=== PATIENT | female | born 1980 | race Caucasian/White ===

== ENCOUNTER 2016-10-05 04:50 | Emergency (ER) | payer OTHER ==
[2016-10-05 05:21] VITALS: BP 118/56; PULSE 100; RESP 18; TEMP 97.7
[2016-10-05] MEDS ORDERED: AMOXIC-POT CLAV 875MG STARTER 2 EACH TABLET PO STA (05:36)
[2016-10-05] MEDS ORDERED: ACET/COD 300 MG/30 MG STARTER PACK 6 TAB BTL PO STA (05:37)
[2016-10-05] MEDS ORDERED: IBUPROFEN 600 MG STARTER PACK 4 TAB BTL PO STA (05:37)
--- NOTE | 2016-10-05 05:42 | ED ---
ENT HPI - General Chief complaint: ENT Stated complaint: Earache Time Seen by Provider: 10/05/16 05:18 Source: patient, family, RN notes reviewed Mode of arrival: ambulatory Limitations: no limitations - History of Present Illness Initial comments: This patient is a 36-year-old woman who complains of having "earache" to the right ear. This is been started over the course the past night. The patient states that the previous week she was having some cough and congestion type symptoms and she often will get uric associated with that. She states that in fact she was surprised she had not had an earache associated with this upper respiratory infection, then she began having symptoms over the course of tonight. Patient denies change in hearing. She denies any discharge from the ear. She is not having fever or chills. No headache. MD complaint: ear pain -: hour(s) Location: R ear Severity: moderate Quality: aching Consistency: constant Improves with: none Worsens with: none Context-Epistaxis: history of similar Associated Symptoms: cough, rhinorrhea - Related Data Home Medications Medication Instructions Recorded Confirmed Lopinavir/Ritonavir [Kaletra 2 tab PO BID 07/30/15 10/05/16 200-50 mg Tablet] lamiVUDine/ZIDOVUDINE [Combivir 1 each PO BID 07/30/15 10/05/16 150Mg/300Mg] Previous Rx's Medication Instructions Recorded Ibuprofen [Motrin] 800 mg PO Q8HR PRN #21 tab 07/30/15 Albuterol Inhaler [Ventolin Hfa 1 - 2 puff INHALATION Q6HR #1 02/24/16 Inhaler] inhaler Cetirizine HCl/Pseudoephedrine 1 each PO BID #30 tab.er.12h 02/24/16 [Zyrtec-D Tablet] Ibuprofen [Motrin] 800 mg PO Q8HR #60 tab 02/24/16 Amoxicillin/Potassium Clav 1 tab PO Q12HR #14 tab 02/25/16 [Augmentin 875-125 Tablet] Acetaminophen-Codeine 300-30mg 1 tab PO Q4H PRN #16 tablet 10/05/16 [Tylenol w/codeine #3] Amoxicillin/Potassium Clav 1 tab PO Q12HR #14 tab 10/05/16 [Augmentin 875-125 Tablet] Ibuprofen [Motrin] 800 mg PO Q8HR PRN #20 tab 10/05/16 Allergies Allergy/AdvReac Type Severity Reaction Status Date / Time No Known Allergies Allergy Verified 10/05/16 05:20 Review of Systems ROS Statement: Those systems with pertinent positive or pertinent negative responses have been documented in the HPI. ROS Other: All systems not noted in ROS Statement are negative. Constitutional: Denies: fever, chills Eyes: Denies: eye pain ENT: Reports: ear pain, congestion. Denies: throat pain, hearing loss Respiratory: Reports: cough. Denies: dyspnea Neurological: Denies: headache, weakness, numbness Past Medical History Additional Past Medical History / Comment(s): HIV History of Any Multi-Drug Resistant Organisms: None Reported Past Surgical History: Section Past Psychological History: No Psychological Hx Reported Smoking Status: Current every day smoker Past Alcohol Use History: None Reported Past Drug Use History: None Reported General Exam Limitations: no limitations General appearance: alert, in no apparent distress Head exam: Present: atraumatic, normocephalic Eye exam: Present: normal appearance. Absent: scleral icterus, conjunctival injection ENT exam: Present: other (Cobblestoning of the oropharynx. The right tympanic membrane has a clear effusion. There is some injection. The external auditory canal is normal. There is no evident perforation. No tragus tenderness.). Absent: TM's normal bilaterally Neck exam: Present: normal inspection, full ROM. Absent: lymphadenopathy Skin exam: Present: warm, dry, intact, normal color. Absent: rash Course Vital Signs 10/05/16 05:17 Temperature 97.7 F Pulse Rate 100 Respiratory 18 Rate Blood Pressure 118/56 O2 Sat by Pulse 97 Oximetry Disposition Clinical Impression: Otitis media Disposition: HOME SELF-CARE Condition: Fair Instructions: Otitis Media (ED) Prescriptions: Acetaminophen-Codeine 300-30mg [Tylenol w/codeine #3] 1 tab PO Q4H PRN #16 tablet PRN Reason: Pain Amoxicillin/Potassium Clav [Augmentin 875-125 Tablet] 1 tab PO Q12HR #14 tab Ibuprofen [Motrin] 800 mg PO Q8HR PRN #20 tab PRN Reason: Pain Referrals: Carmen Alicea MD [Primary Care Provider] - 1-2 days
== END 2016-10-05 05:54 | disposition home or self-care (01) ==
LOC: EC 04:50
DX: H66.91 Otitis media, unspecified, right ear (principal); B20 Human immunodeficiency virus [HIV] disease; F17.200 Nicotine dependence, unspecified, uncomplicated; Z79.899 Other long term (current) drug therapy; Z79.1 Long term (current) use of non-steroidal anti-inflammatories (NSAID)
CPT/HCPCS: 99283

== ENCOUNTER → 2017-06-15 | Outpatient (CLI) | payer OTHER ==
[2017-06-15 13:27] LABS: Basophils % (A) 1 %; CH 39.2; CHCM 32.7; Eosinophils # (A) 0.1 k/uL (0-0.7); Eosinophils % (A) 2 %; HCT 42.7 % (34.0-46.0); HDW 2.42; HGB 14.2 gm/dL (11.4-16.0); Luc # (Auto) 0.12; Luc % (Auto) 2; Lymphocytes # (A) 2.8 k/uL (1.0-4.8); Lymphocytes % (A) 39 %; MCHC 33.2 g/dL (31.0-37.0); MCV 120.5 fL (80.0-100.0); Macrocytosis Marked; Mean Platelet Volume 7.8; Monocytes # (A) 0.3 k/uL (0-1.0); Monocytes % (A) 5 %; Neutrophils # (A) 3.7 k/uL (1.3-7.7); Neutrophils % (A) 52 %; RBC 3.54 m/uL (3.80-5.40); RDW 12.8 % (11.5-15.5); WBC 7.1 k/uL (3.8-10.6); WBC (Perox) 7.35
[2017-06-15 13:49] LABS: Manual Review Performed
[2017-06-15 15:00] LABS: Anion Gap 9 mmol/L; Blood Urea Nitrogen 10 mg/dL (7-17); Calcium 9.4 mg/dL (8.4-10.2); Carbon Dioxide 22 mmol/L (22-30); Chloride 107 mmol/L (98-107); Glucose 87 mg/dL (74-99); Non-African American GFR(MDRD) >60 (>60 ml/min/1.73 sqM); Potassium 4.4 mmol/L (3.5-5.1); Sodium 138 mmol/L (137-145)
[2017-06-16 13:55] LABS: LOG HIV Copies/mL <1.60 (<1.60)
== END | disposition home or self-care (01) ==
LOC: LABWHC1 12:45
PROVIDERS: ATTEND Internal Medicine Infectious Disease
DX: B20 Human immunodeficiency virus [HIV] disease (principal)
CPT/HCPCS: 36415; 80048; 85025; 86360; 87536

== ENCOUNTER → 2017-12-21 | Outpatient (CLI) | payer OTHER ==
[2017-12-21 15:19] LABS: Anion Gap 9 mmol/L; Blood Urea Nitrogen 10 mg/dL (7-17); Calcium 9.2 mg/dL (8.4-10.2); Carbon Dioxide 24 mmol/L (22-30); Chloride 109 mmol/L (98-107); Glucose 87 mg/dL (74-99); Potassium 3.7 mmol/L (3.5-5.1); Sodium 142 mmol/L (137-145)
[2017-12-21 15:47] LABS: Basophils % (A) 0 %; Eosinophils # (A) 0.2 k/uL (0-0.7); Eosinophils % (A) 3 %; HCT 37.2 % (34.0-46.0); HGB 13.1 gm/dL (11.4-16.0); Lymphocytes # (A) 1.7 k/uL (1.0-4.8); Lymphocytes % (A) 32 %; MCH 38.2 pg (25.0-35.0); MCHC 35.3 g/dL (31.0-37.0); Macrocytosis Moderate; Mean Platelet Volume 8.9; Monocytes # (A) 0.4 k/uL (0-1.0); Monocytes % (A) 7 %; Neutrophils % (A) 55 %; Platelet Count 295 k/uL (150-450); RBC 3.44 m/uL (3.80-5.40); RDW 13.1 % (11.5-15.5); WBC 5.4 k/uL (3.8-10.6)
[2017-12-21 16:51] LABS: Large Platelets Present; Polychromasia Present
[2017-12-22 10:17] LABS: T4/T8 Ratio (CD4:CD8) 1.9 (1.0-3.7)
[2017-12-22 13:57] LABS: HIV-1 RNA Not detected (Not detected); HIV-1 RNA, Quant <40 Copies/mL (<40)
== END | disposition home or self-care (01) ==
LOC: LABWHC1 14:48
PROVIDERS: ATTEND Internal Medicine Infectious Disease
DX: B20 Human immunodeficiency virus [HIV] disease (principal)
CPT/HCPCS: 36415; 80048; 85025; 86360; 87536

== ENCOUNTER → 2018-07-05 | Outpatient (CLI) | payer OTHER ==
[2018-07-05 16:27] LABS: Basophils % (A) 1 %; Eosinophils # (A) 0.2 k/uL (0-0.7); Eosinophils % (A) 3 %; HCT 43.2 % (34.0-46.0); HGB 14.2 gm/dL (11.4-16.0); Lymphocytes # (A) 2.1 k/uL (1.0-4.8); Lymphocytes % (A) 36 %; MCH 37.1 pg (25.0-35.0); MCHC 32.9 g/dL (31.0-37.0); MCV 112.6 fL (80.0-100.0); Macrocytosis Marked; Mean Platelet Volume 7.9; Monocytes # (A) 0.3 k/uL (0-1.0); Monocytes % (A) 5 %; Neutrophils # (A) 3.1 k/uL (1.3-7.7); Neutrophils % (A) 54 %; Platelet Count 214 k/uL (150-450); RBC 3.83 m/uL (3.80-5.40); RDW 13.4 % (11.5-15.5); WBC 5.8 k/uL (3.8-10.6)
[2018-07-05 16:33] LABS: Anion Gap 7 mmol/L; Blood Urea Nitrogen 11 mg/dL (7-17); Calcium 9.6 mg/dL (8.4-10.2); Carbon Dioxide 23 mmol/L (22-30); Chloride 108 mmol/L (98-107); Glucose 85 mg/dL (74-99); Potassium 3.9 mmol/L (3.5-5.1); Sodium 138 mmol/L (137-145)
[2018-07-06 10:50] LABS: T4/T8 Ratio (CD4:CD8) 1.3 (1.0-3.7)
[2018-07-07 14:03] LABS: HIV-1 RNA Not detected (Not detected); HIV-1 RNA, Quant <40 Copies/mL (<40)
== END | disposition home or self-care (01) ==
LOC: LABWHC1 15:56
PROVIDERS: ATTEND Internal Medicine Infectious Disease
DX: B20 Human immunodeficiency virus [HIV] disease (principal)
CPT/HCPCS: 36415; 80048; 85025; 86360; 87536

== ENCOUNTER 2018-09-25 21:58 | Emergency (ER) | payer OTHER ==
--- NOTE | 2018-09-25 22:24 | ED ---
Fall HPI - General Chief Complaint: Fall Stated Complaint: Ankle Injury Time Seen by Provider: 09/25/18 22:05 Source: EMS Mode of arrival: EMS - History of Present Illness Initial Comments: 's patient is a 38-year-old woman brought by ambulance to be evaluated after she had a fall at home tonight. The patient states that she was walking on the stairs and she states that she turned her ankle, she indicates that the right foot inverted resulting in her falling and also hitting the dorsum of the left foot. She now has pain to the right ankle, mainly at the lateral malleolus, and the left foot mainly the medial aspect. She felt that she couldn't stand up and EMS was called and brought her here. At my history and physical, she has received fentanyl from EMS and she declines further analgesia. Patient denies weakness or numbness. Complaint: fall -: minutes(s) Fall From: down stairs (#) When Fall Occurred: just prior to arrival Place Fall Occurred: home Loss of Consciousness: none Prolonged Down Time?: no Symptoms Prior to Fall: none Location - Extremities: Left: Foot, Right: Ankle Severity: severe Context: tripped/slipped - Related Data Home Medications Medication Instructions Recorded Confirmed Lopinavir/Ritonavir [Kaletra 2 tab PO BID 07/30/15 09/25/18 200-50 mg Tablet] lamiVUDine/ZIDOVUDINE [Combivir 1 tab PO BID 07/30/15 09/25/18 150Mg/300Mg] Guaifenesin/Pseudoephedrne HCl 1 tab PO Q12H 09/25/18 09/25/18 [Mucinex D ER Tablet] Previous Rx's Medication Instructions Recorded Hydrocodone/Acetaminophen [[place] 1 each PO Q6HR PRN #20 tab 09/25/18 5-325] Ibuprofen 800 mg PO TID #20 tablet 09/25/18 Allergies Allergy/AdvReac Type Severity Reaction Status Date / Time No Known Allergies Allergy Verified 09/25/18 22:10 Review of Systems ROS Statement: Those systems with pertinent positive or pertinent negative responses have been documented in the HPI. ROS Other: All systems not noted in ROS Statement are negative. Constitutional: Denies: fever, chills, weakness Respiratory: Denies: dyspnea Cardiovascular: Denies: chest pain Gastrointestinal: Denies: abdominal pain Musculoskeletal: Reports: as per HPI, joint swelling, arthralgia. Denies: back pain Skin: Denies: lesions Neurological: Denies: headache, weakness, numbness Past Medical History Additional Past Medical History / Comment(s): HIV History of Any Multi-Drug Resistant Organisms: None Reported Past Surgical History: Section Past Psychological History: No Psychological Hx Reported Smoking Status: Current every day smoker Past Alcohol Use History: None Reported Past Drug Use History: None Reported General Exam Limitations: no limitations General appearance: alert, in no apparent distress Head exam: Present: atraumatic, normocephalic Neck exam: Present: full ROM. Absent: tenderness Respiratory exam: Present: normal lung sounds bilaterally. Absent: respiratory distress, wheezes, rales, rhonchi, stridor Cardiovascular Exam: Present: regular rate, normal rhythm, normal heart sounds Extremities exam: Present: other (No tenderness to the knees or tib-fib areas bilaterally. Mild swelling and tenderness to the right lateral malleolus. No foot tenderness on the right. On the left no tenderness of the ankle or swelling. There is tenderness to the medial aspect of the forefoot on the left. Bilaterally there is normal pulses, normal capillary refill, normal sensorimotor exam.) Back exam: Present: normal inspection. Absent: vertebral tenderness Neurological exam: Present: alert. Absent: motor sensory deficit Skin exam: Present: warm, dry, intact, normal color. Absent: rash Course Vital Signs 09/25/18 09/26/18 22:00 00:10 Temperature 98.4 F Pulse Rate 87 70 Respiratory 22 17 Rate Blood Pressure 119/59 132/90 O2 Sat by Pulse 97 98 Oximetry Medical Decision Making - Medical Decision Making Case discussed with Dr. Henriquez, who did request computed tomography scan of the foot will see the patient in the clinic and. Disposition Clinical Impression: Fall, Metatarsal fracture, Right ankle sprain Disposition: HOME SELF-CARE Condition: Fair Instructions: Ankle Sprain (DC), Foot Fracture in Adults (ED) Prescriptions: Hydrocodone/Acetaminophen [[place] 5-325] 1 each PO Q6HR PRN #20 tab PRN Reason: Pain Ibuprofen 800 mg PO TID #20 tablet Is patient prescribed a controlled substance at d/c from ED?: Yes When asked, does pt state using other controlled substances?: No If prescribed controlled substance>3 days was MAPS reviewed?: Prescribed <3 Days If opioid is for acute pain is fill amount 7 days or less?: Yes If Rx opioid, was Start Talking consent form obtained?: Yes Referrals: Carmen Alicea MD [Primary Care Provider] - 1-2 days Chris Henriquez MD [Medical Doctor] - 1-2 days
--- NOTE | 2018-09-25 22:49 | XR ---
EXAMINATION TYPE: XR ankle complete RT DATE OF EXAM: 09/25/2018 COMPARISON: NONE HISTORY: Pain TECHNIQUE: 3 views FINDINGS: Ankle mortise is anatomic. There is soft tissue swelling over the lateral malleolus. There is plantar calcaneal spurring. I see no fracture nor dislocation. IMPRESSION: No fracture seen. Soft tissue swelling.
--- NOTE | 2018-09-25 22:50 | XR ---
EXAMINATION TYPE: XR foot complete LT DATE OF EXAM: 09/25/2018 COMPARISON: NONE HISTORY: Foot pain TECHNIQUE: 3 views FINDINGS: There are transverse fractures of the base of the second and third metatarsals with comminu tion. There is no dislocation. There is soft tissue swelling of the forefoot. There is probably also transverse fracture base of the fourth metatarsal. IMPRESSION: Multiple proximal metatarsal fractures. Soft tissue swelling.
[2018-09-25] MEDS ORDERED: HYDROcodone/APAP 5-325MG 1 EACH TAB PO STA (23:08)
[2018-09-25] MEDS ORDERED: IBUPROFEN 400 MG TAB PO STA (23:08)
--- NOTE | 2018-09-26 01:23 | CT ---
EXAMINATION TYPE: CT foot LT wo con DATE OF EXAM: 09/26/2018 COMPARISON: None HISTORY: pain after fall CT DLP: 291.6 mGycm Automated exposure control for dose reduction was used. FINDINGS: Multiple axial sections were obtained from the distal tibia to the bottom of the feet with no contras t. There is comminuted nondisplaced transverse fracture fracture of the base of the second metatarsal. F ragments are up to 3 mm. There is displaced comminuted fracture base of the third metatarsa l with separation of the fragments up to 6 mm. There is comminuted fracture of the base of the fourth metatarsal with separation of the fragments 5 mm. The fifth metatarsal is intact. First metatarsal i s intact. There are plantar and Achilles calcaneal spurs. The tarsal bones appear intact. IMPRESSION: COMMINUTED FRACTURES OF THE BASE OF THE SECOND AND THIRD AND FOURTH METATARSALS ABOVE. NO DISLOCAT ION.
[2018-09-26 01:46] VITALS: BP 115/63; PULSE 74; RESP 16; TEMP 98.5
== END 2018-09-26 01:59 | disposition home or self-care (01) ==
LOC: EC 21:58
DX: S92.322A Displaced fracture of second metatarsal bone, left foot, initial encounter for closed fracture (principal); S92.332A Displaced fracture of third metatarsal bone, left foot, initial encounter for closed fracture; S92.342A Displaced fracture of fourth metatarsal bone, left foot, initial encounter for closed fracture; S93.401A Sprain of unspecified ligament of right ankle, initial encounter; F17.200 Nicotine dependence, unspecified, uncomplicated; Z21 Asymptomatic human immunodeficiency virus [HIV] infection status; Z79.899 Other long term (current) drug therapy; W10.9XXA Fall (on) (from) unspecified stairs and steps, initial encounter; Y93.01 Activity, walking, marching and hiking; Y92.099 Unspecified place in other non-institutional residence as the place of occurrence of the external cause
CPT/HCPCS: 73610; 73630; 73700; 99284; 29515; L4350

== ENCOUNTER 2018-12-08 19:30 | Emergency (ER) | payer OTHER ==
[2018-12-08 19:42] VITALS: RESP 20
[2018-12-08] MEDS ORDERED: PROMETHAZ-COD 6.25-10 MG/5 ML 5 ML CUP PO STA (20:01)
[2018-12-08] MEDS ORDERED: IPRATROPIUM 0.5 MG/2.5 ML NEBU INHALATION STA (20:01)
[2018-12-08] MEDS ORDERED: predniSONE 50 MG TAB PO STA (20:01)
[2018-12-08] MEDS ORDERED: ALBUTEROL NEBULIZED 2.5 MG/3 ML INHALATION ONE (20:08)
--- NOTE | 2018-12-08 20:47 | XR ---
EXAMINATION TYPE: XR chest 2V DATE OF EXAM: 12/08/2018 COMPARISON: 02/24/2016 HISTORY: Cough and congestion TECHNIQUE: Frontal and lateral views of the chest are obtained. FINDINGS: Heart and mediastinum are normal. Lungs are clear. Diaphragm is normal. Bony thorax appear s normal. IMPRESSION: Normal chest. No change.
[2018-12-08 21:09] VITALS: BP 120/67; PULSE 103; TEMP 98.9
--- NOTE | 2018-12-08 21:25 | ED ---
URI HPI - General Source: patient, family Mode of arrival: ambulatory Limitations: no limitations <Maine Bell - Last Filed: 12/08/18 22:42> <Kathryn Herbert - Last Filed: 12/09/18 03:55> - General Chief Complaint: Upper Respiratory Infection Stated Complaint: upper respiratory issues Time Seen by Provider: 12/08/18 19:56 - History of Present Illness Initial Comments: 38-year-old female patient presents to the emergency department today for evaluation of cough and shortness of breath. Patient states that she has been coughing for the last 2-3 weeks. States that she initially started with fevers, nasal congestion and cough. States other symptoms have resolved however the cough has persisted. Patient states her last couple days she has had increased shortness of breath. States she has been wheezing. She denies any current fevers or chills. States she is coughing up green sputum. She denies any current nasal congestion or drainage. Patient does admit to smoking cigarettes. Denies any history of asthma or COPD. Patient denies any recent rash, chest pain, abdominal pain, nausea, vomiting, diarrhea, constipation, back pain, numbness, tingling, dizziness, weakness, hematuria, dysuria, urinary urgency, urinary frequency, headache, visual changes, or any other complaints. (Maine Bell) - Related Data Home Medications Medication Instructions Recorded Confirmed Lopinavir/Ritonavir [Kaletra 2 tab PO BID 07/30/15 12/08/18 200-50 mg Tablet] lamiVUDine/ZIDOVUDINE [Combivir 1 tab PO BID 07/30/15 12/08/18 150Mg/300Mg] Guaifenesin/Pseudoephedrne HCl 1 tab PO Q12H 09/25/18 12/08/18 [Mucinex D ER Tablet] Ibuprofen 800 mg PO TID PRN 12/08/18 12/08/18 Previous Rx's Medication Instructions Recorded Albuterol Sulfate [Proair Hfa] 1 - 2 puff INHALATION Q6HR PRN #1 12/08/18 inhaler Ipratropium-Albuterol Nebulize 3 ml INHALATION Q4H PRN #30 neb 12/08/18 [Duoneb 0.5 mg-3 mg/3 ml Soln] Promethazine 6.25MG/5Ml [Phenergan 6.25 mg PO Q6H #100 ml 12/08/18 Syrup] predniSONE 50 mg PO DAILY #5 tablet 12/08/18 Allergies Allergy/AdvReac Type Severity Reaction Status Date / Time No Known Allergies Allergy Verified 12/08/18 20:03 Review of Systems ROS Other: All systems not noted in ROS Statement are negative. <Maine Bell - Last Filed: 12/08/18 22:42> ROS Other: All systems not noted in ROS Statement are negative. <Kathryn Herbert - Last Filed: 12/09/18 03:55> ROS Statement: Those systems with pertinent positive or pertinent negative responses have been documented in the HPI. Past Medical History Additional Past Medical History / Comment(s): HIV History of Any Multi-Drug Resistant Organisms: None Reported Past Surgical History: Section Past Psychological History: No Psychological Hx Reported Smoking Status: Current every day smoker Past Alcohol Use History: None Reported Past Drug Use History: None Reported <Maine Bell - Last Filed: 12/08/18 22:42> General Exam Limitations: no limitations General appearance: alert, in no apparent distress, other (Physical well- developed, well-nourished adult female patient in no acute distress. Vital signs upon presentation are temperature 98.4F, pulse 107, respirations 20, blood pressure 126/68, pulse ox 95% on room air.) Eye exam: Present: normal appearance, PERRL, EOMI. Absent: scleral icterus, conjunctival injection, periorbital swelling ENT exam: Present: normal exam, normal oropharynx, mucous membranes moist Respiratory exam: Present: wheezes (Course expiratory wheezing in the posterior lung field). Absent: normal lung sounds bilaterally, respiratory distress, rales, rhonchi, stridor, accessory muscle use Cardiovascular Exam: Present: regular rate, normal rhythm, normal heart sounds. Absent: systolic murmur, diastolic murmur, rubs, gallop, clicks GI/Abdominal exam: Present: soft, normal bowel sounds. Absent: distended, tenderness, guarding, rebound, rigid Neurological exam: Present: alert, oriented X3, CN II-XII intact Psychiatric exam: Present: normal affect, normal mood Skin exam: Present: warm, dry, intact, normal color. Absent: rash <Maine Bell - Last Filed: 12/08/18 22:42> Course Vital Signs 12/08/18 12/08/18 12/08/18 19:38 20:24 20:34 Temperature 98.4 F Pulse Rate 107 H 102 H 100 Respiratory 20 Rate Blood Pressure 126/68 O2 Sat by Pulse 95 Oximetry 12/08/18 21:08 Temperature 98.9 F Pulse Rate 103 H Respiratory 20 Rate Blood Pressure 120/67 O2 Sat by Pulse 94 L Oximetry Medical Decision Making - Radiology Data Radiology results: report reviewed, image reviewed <Maine Bell - Last Filed: 12/08/18 22:42> <Kathryn Herbert - Last Filed: 12/09/18 03:55> - Medical Decision Making 38 year-old female patient presented to the emergency department today for evaluation of cough and shortness of breath. Physical examination did reveal coarse expiratory wheezing in the posterior lung huber. Oxygen saturation was 95% upon arrival. Patient did receive breathing treatment, by mouth steroids, and cough medication. Upon reevaluation patient states her symptoms are improved. Lung sounds have improved. Patient symptoms are consistent with acute bronchitis. We'll discharge with nebulizer treatments, by mouth steroids, and cough medication. She is instructed to follow-up with her primary care physician for recheck in 1-2 days. Return parameters discussed in detail. She verbalizes understanding and agrees with this plan. (Maine Bell) I was available for consultation in the emergency department. The history and physical exam were done by the midlevel provider. I was consulted for this patient's care. I reviewed the case with the midlevel provider and based on their presentation of the patient, I agree with the assessment, medical decision making and plan of care as documented. (Kathryn Herbert) - Radiology Data Two-view x-ray of the chest is obtained. Report was reviewed in its entirety. Impression by Dr. Jain shows normal chest with no change. (Maine Bell) Disposition Is patient prescribed a controlled substance at d/c from ED?: No Time of Disposition: 21:25 <Maine Bell - Last Filed: 12/08/18 22:42> <Kathryn Herbert - Last Filed: 12/09/18 03:55> Clinical Impression: Acute bronchitis Disposition: HOME SELF-CARE Condition: Good Instructions (If sedation given, give patient instructions): Acute Bronchitis (ED) Additional Instructions: Do breathing treatments every 4 hours. Use inhaler as needed. Complete steroid prescription in full. Follow-up through primary care physician for recheck in 1-2 days. Return to the emergency department immediately for any new, worsening, or concerning symptoms. Prescriptions: Ipratropium-Albuterol Nebulize [Duoneb 0.5 mg-3 mg/3 ml Soln] 3 ml INHALATION Q4H PRN #30 neb PRN Reason: Wheezing/Shortness of breath Promethazine 6.25MG/5Ml [Phenergan Syrup] 6.25 mg PO Q6H #100 ml predniSONE 50 mg PO DAILY #5 tablet Albuterol Sulfate [Proair Hfa] 1 - 2 puff INHALATION Q6HR PRN #1 inhaler PRN Reason: Shortness Of Breath Referrals: Carmen Alicea MD [Primary Care Provider] - 1-2 days
== END 2018-12-08 21:44 | disposition home or self-care (01) ==
LOC: EC 19:30
DX: J20.9 Acute bronchitis, unspecified (principal); B20 Human immunodeficiency virus [HIV] disease; F17.200 Nicotine dependence, unspecified, uncomplicated; Z79.899 Other long term (current) drug therapy
CPT/HCPCS: 94644; 71046; 99285; J7512

== ENCOUNTER → 2018-12-28 | Outpatient (CLI) | payer OTHER ==
[2018-12-28 14:39] LABS: Basophils % (A) 0 %; Eosinophils # (A) 0.2 k/uL (0-0.7); Eosinophils % (A) 2 %; HCT 43.9 % (34.0-46.0); HGB 14.6 gm/dL (11.4-16.0); Lymphocytes # (A) 2.8 k/uL (1.0-4.8); Lymphocytes % (A) 30 %; MCH 37.1 pg (25.0-35.0); MCHC 33.3 g/dL (31.0-37.0); MCV 111.2 fL (80.0-100.0); Macrocytosis Marked; Mean Platelet Volume 7.5; Monocytes # (A) 0.3 k/uL (0-1.0); Monocytes % (A) 3 %; Neutrophils # (A) 5.8 k/uL (1.3-7.7); Neutrophils % (A) 63 %; Platelet Count 260 k/uL (150-450); RBC 3.95 m/uL (3.80-5.40); RDW 13.5 % (11.5-15.5); WBC 9.1 k/uL (3.8-10.6)
[2018-12-28 19:28] LABS: Anion Gap 7.3 mmol/L (4.00-12.00); Calcium 9.5 mg/dL (8.7-10.3); Carbon Dioxide 24.7 mmol/L (21.6-31.8); Potassium 3.8 mmol/L (3.5-5.5)
[2018-12-29 12:55] LABS: T4/T8 Ratio (CD4:CD8) 1.5 (1.0-3.7)
[2018-12-29 14:16] LABS: HIV-1 RNA Not detected (Not detected); HIV-1 RNA, Quant <40 Copies/mL (<40)
== END | disposition home or self-care (01) ==
LOC: LABWHC1 13:14
PROVIDERS: ATTEND Internal Medicine Infectious Disease
DX: B20 Human immunodeficiency virus [HIV] disease (principal)
CPT/HCPCS: 36415; 80048; 85025; 86360; 87536

== ENCOUNTER → 2019-06-28 | Outpatient (CLI) | payer OTHER ==
[2019-06-28 12:10] LABS: Basophils % (A) 1 %; Eosinophils # (A) 0.1 k/uL (0-0.7); Eosinophils % (A) 1 %; HCT 43.9 % (34.0-46.0); HGB 14.4 gm/dL (11.4-16.0); Lymphocytes # (A) 2.3 k/uL (1.0-4.8); Lymphocytes % (A) 34 %; MCH 37.4 pg (25.0-35.0); MCHC 32.8 g/dL (31.0-37.0); MCV 113.9 fL (80.0-100.0); Macrocytosis Marked; Mean Platelet Volume 8.5; Monocytes # (A) 0.3 k/uL (0-1.0); Monocytes % (A) 5 %; Neutrophils % (A) 58 %; Platelet Count 203 k/uL (150-450); RBC 3.86 m/uL (3.80-5.40); RDW 12.7 % (11.5-15.5); WBC 6.8 k/uL (3.8-10.6)
[2019-06-28 15:45] LABS: African American GFR (CKD) 128.3 (60.0-200.0); Anion Gap 9.4 mmol/L (4.00-12.00); BUN/Creat Ratio 11.43 Ratio (12.00-20.00); Calcium 9.3 mg/dL (8.7-10.3); Carbon Dioxide 24.6 mmol/L (21.6-31.8); Potassium 4.3 mmol/L (3.5-5.5)
[2019-06-29 11:11] LABS: T4/T8 Ratio (CD4:CD8) 1.5 (1.0-3.7)
[2019-06-29 13:53] LABS: HIV-1 RNA, Quant <40 Copies/mL (<40)
== END | disposition home or self-care (01) ==
LOC: LABWHC1 10:28
PROVIDERS: ATTEND Internal Medicine Infectious Disease
DX: B20 Human immunodeficiency virus [HIV] disease (principal)
CPT/HCPCS: 36415; 80048; 85025; 86360; 87536

== ENCOUNTER → 2020-05-22 | Outpatient (CLI) | payer OTHER ==
[2020-05-22 15:15] LABS: Basophils # (A) 0.1 k/uL (0-0.2); Basophils % (A) 1 %; Eosinophils # (A) 0.1 k/uL (0-0.7); Eosinophils % (A) 1 %; HCT 42.7 % (34.0-46.0); HGB 14.5 gm/dL (11.4-16.0); Lymphocytes # (A) 2.5 k/uL (1.0-4.8); Lymphocytes % (A) 34 %; MCHC 33.9 g/dL (31.0-37.0); Macrocytosis Marked; Mean Platelet Volume 9.7; Monocytes # (A) 0.3 k/uL (0-1.0); Monocytes % (A) 4 %; Neutrophils # (A) 4.4 k/uL (1.3-7.7); Neutrophils % (A) 60 %; Platelet Count 198 k/uL (150-450); RBC 3.81 m/uL (3.80-5.40); RDW 12.9 % (11.5-15.5); WBC 7.4 k/uL (3.8-10.6)
[2020-05-22 15:16] LABS: MCV 112.1 fL (80.0-100.0)
[2020-05-23 01:57] LABS: African American GFR (CKD) 108.4 (60.0-200.0); Albumin 4.2 g/dL (3.80-4.90); Albumin/Globulin Ratio 1.83 (1.60-3.17); Anion Gap 9.1 mmol/L (4.00-12.00); BUN/Creat Ratio 8.75 Ratio (12.00-20.00); Carbon Dioxide 20.9 mmol/L (21.6-31.8); Globulin 2.3 g/dL (1.6-3.3); Non-African American GFR(CKD) 93.5 (60.0-200.0); Total Bilirubin 0.6 mg/dL (0.2-1.2); Total Protein 6.5 g/dL (6.2-8.2)
[2020-05-23 12:43] LABS: T4/T8 Ratio (CD4:CD8) 1.6 (1.0-3.7)
== END | disposition home or self-care (01) ==
LOC: LABWHC1 13:53
PROVIDERS: ATTEND Internal Medicine Infectious Disease
DX: B20 Human immunodeficiency virus [HIV] disease (principal)
CPT/HCPCS: 36415; 80053; 85025; 86360; 87536

== ENCOUNTER → 2020-12-24 | Outpatient (CLI) | payer OTHER ==
[2020-12-24 19:19] LABS: HCT 42.3 % (37.2-46.3); HGB 14.5 g/dL (12.0-15.0); MCH 39.8 pg (27.0-32.0); MCHC 34.3 g/dL (32.0-37.0); MCV 116.2 fL (80.0-97.0); Mean Platelet Volume 12.2 fL (9.5-12.2); Platelet Count 197 X 10*3/uL (140-440); RBC 3.64 X 10*6/uL (4.10-5.20); RDW 12.7 % (11.5-14.5); WBC 6.79 X 10*3/uL (4.50-10.00)
[2020-12-24 19:29] LABS: Albumin 4.4 g/dL (3.80-4.90); Albumin/Globulin Ratio 2.1 (1.60-3.17); Anion Gap 4.4 mmol/L (4.00-12.00); BUN/Creat Ratio 16.67 Ratio (12.00-20.00); Calcium 9.1 mg/dL (8.7-10.3); Carbon Dioxide 22.6 mmol/L (21.6-31.8); Globulin 2.1 g/dL (1.6-3.3); Non-African American GFR(CKD) 115.6 (60.0-200.0); Total Bilirubin 0.7 mg/dL (0.2-1.2); Total Protein 6.5 g/dL (6.2-8.2)
[2020-12-24 20:02] LABS: Basophils # (A) 0.02 X 10*3/uL (0.00-0.10); Basophils % (A) 0.3 %; Eosinophils # (A) 0.12 X 10*3/uL (0.04-0.35); Eosinophils % (A) 1.8 %; Lymphocytes # (A) 2.38 X 10*3/uL (0.90-5.00); Lymphocytes % (A) 35.1 %; Monocytes # (A) 0.47 X 10*3/uL (0.20-1.00); Monocytes % (A) 6.9 %; Neutrophils # (A) 3.79 X 10*3/uL (1.80-7.70); Neutrophils % (A) 55.8 %
[2020-12-24 20:03] LABS: Macrocytosis (M) 3+
[2020-12-25 10:31] LABS: T4/T8 Ratio (CD4:CD8) 1.6 (1.0-3.7)
[2020-12-25 14:21] LABS: HIV-1 RNA Not detected (Not detected); HIV-1 RNA, Quant <40 Copies/mL (<40)
== END | disposition home or self-care (01) ==
LOC: LABWHC1 11:09
PROVIDERS: ATTEND Internal Medicine Infectious Disease
DX: B20 Human immunodeficiency virus [HIV] disease (principal)
CPT/HCPCS: 36415; 80053; 85025; 86360; 87536

== ENCOUNTER → 2021-11-20 | Outpatient (CLI) | payer OTHER ==
[2021-11-20 23:46] LABS: HCT 41.6 % (37.2-46.3); HGB 14.1 g/dL (12.0-15.0); MCHC 33.9 g/dL (32.0-37.0); MCV 114.9 fL (80.0-97.0); Mean Platelet Volume 11.7 fL (9.5-12.2); NRBC Per 100 WBC 0 /100 WBCS (0.0-0.0); Platelet Count 224 X 10*3/uL (140-440); RBC 3.62 X 10*6/uL (4.10-5.20); RDW 13.1 % (11.5-14.5); WBC 5.08 X 10*3/uL (4.50-10.00)
[2021-11-21 00:49] LABS: Basophils # (A) 0.03 X 10*3/uL (0.00-0.10); Basophils % (A) 0.6 %; Eosinophils # (A) 0.11 X 10*3/uL (0.04-0.35); Eosinophils % (A) 2.2 %; Immature Grans, Automated 0.4 %; Lymphocytes # (A) 2.27 X 10*3/uL (0.90-5.00); Lymphocytes % (A) 44.7 %; Monocytes # (A) 0.28 X 10*3/uL (0.20-1.00); Monocytes % (A) 5.5 %; Neutrophils # (A) 2.37 X 10*3/uL (1.80-7.70); Neutrophils % (A) 46.6 %
[2021-11-21 00:50] LABS: Macrocytosis (M) 2+
[2021-11-21 02:03] LABS: African American GFR (CKD) 126.5 (60.0-200.0); Albumin 4.1 g/dL (3.8-4.9); Albumin/Globulin Ratio 1.71 (1.60-3.17); Anion Gap 11.5 mmol/L (10.00-18.00); BUN/Creat Ratio 12.29 Ratio (12.00-20.00); Blood Urea Nitrogen 8.6 mg/dL (9.0-27.0); Calcium 9.5 mg/dL (8.7-10.3); Carbon Dioxide 21.5 mmol/L (20.0-27.5); Globulin 2.4 g/dL (1.6-3.3); Non-African American GFR(CKD) 109.1 (60.0-200.0); Total Bilirubin 0.4 mg/dL (0.30-1.20); Total Protein 6.5 g/dL (6.2-8.2)
[2021-11-21 12:54] LABS: T4/T8 Ratio (CD4:CD8) 1.6 (1.0-3.7)
== END | disposition home or self-care (01) ==
LOC: LABWHC1 14:56
PROVIDERS: ATTEND Internal Medicine Infectious Disease
DX: B20 Human immunodeficiency virus [HIV] disease (principal)
CPT/HCPCS: 36415; 80053; 85025; 86360; 87536

== ENCOUNTER → 2022-04-22 | Outpatient (CLI) | payer OTHER ==
[2022-04-22 22:50] LABS: Basophils # (A) 0.03 X 10*3/uL (0.00-0.10); Basophils % (A) 0.4 %; Eosinophils # (A) 0.16 X 10*3/uL (0.04-0.35); Eosinophils % (A) 2.3 %; HCT 43.3 % (37.2-46.3); HGB 14.6 g/dL (12.0-15.0); Immature Grans, Automated 0.1 %; Lymphocytes # (A) 3.04 X 10*3/uL (0.90-5.00); Lymphocytes % (A) 44.4 %; MCH 30.7 pg (27.0-32.0); MCHC 33.7 g/dL (32.0-37.0); MCV 91.2 fL (80.0-97.0); Mean Platelet Volume 12.2 fL (9.5-12.2); Monocytes # (A) 0.27 X 10*3/uL (0.20-1.00); Monocytes % (A) 3.9 %; NRBC Per 100 WBC 0 /100 WBCS (0.0-0.0); Neutrophils # (A) 3.33 X 10*3/uL (1.80-7.70); Neutrophils % (A) 48.9 %; Platelet Count 189 X 10*3/uL (140-440); RBC 4.75 X 10*6/uL (4.10-5.20); RDW 12.1 % (11.5-14.5); WBC 6.84 X 10*3/uL (4.50-10.00)
[2022-04-22 23:37] LABS: Albumin 4.1 g/dL (3.8-4.9); Albumin/Globulin Ratio 1.74 (1.60-3.17); Anion Gap 10.6 mmol/L (10.00-18.00); BUN/Creat Ratio 14.85 Ratio (12.00-20.00); Blood Urea Nitrogen 11.6 mg/dL (9.0-27.0); Calcium 9.5 mg/dL (8.7-10.3); Carbon Dioxide 22.3 mmol/L (20.0-27.5); Globulin 2.4 g/dL (1.6-3.3); Non-African American GFR(CKD) 94.9 (60.0-200.0); Potassium 3.9 mmol/L (3.5-5.5); Total Bilirubin 0.3 mg/dL (0.30-1.20); Total Protein 6.5 g/dL (6.2-8.2)
[2022-04-23 12:15] LABS: T4/T8 Ratio (CD4:CD8) 1.5 (1.0-3.7)
== END | disposition home or self-care (01) ==
LOC: LABWHC1 14:52
PROVIDERS: ATTEND Internal Medicine Infectious Disease
DX: B20 Human immunodeficiency virus [HIV] disease (principal)
CPT/HCPCS: 36415; 80053; 85025; 86360; 87536

== ENCOUNTER 2022-05-30 23:53 | Emergency (ER) | payer OTHER ==
[2022-05-31 00:15] VITALS: RESP 15; TEMP 98.5
[2022-05-31] MEDS ORDERED: PROCHLORPERAZINE INJ 10 MG/2 ML VIAL IVP STA (04:58)
[2022-05-31] MEDS ORDERED: KETOROLAC 15 MG/ML 1 ML VIAL IVP STA (04:58)
[2022-05-31] MEDS ORDERED: diphenhydrAMINE 50 MG/ML 1 ML VIAL IVP STA (04:58)
[2022-05-31] MEDS ORDERED: methylPREDNISolone SOD SUCCIN 250 MG in SODIUM CHLORIDE 0.9% 100 ML IVPB ONE (05:00)
[2022-05-31 06:30] LABS: Basophils % (A) 0 %; Eosinophils # (A) 0.2 k/uL (0-0.7); Eosinophils % (A) 2 %; HCT 44.4 % (34.0-46.0); HGB 15.2 gm/dL (11.4-16.0); Lymphocytes # (A) 2.9 k/uL (1.0-4.8); Lymphocytes % (A) 35 %; MCH 31.9 pg (25.0-35.0); MCHC 34.2 g/dL (31.0-37.0); MCV 93.2 fL (80.0-100.0); Mean Platelet Volume 9.2; Monocytes # (A) 0.3 k/uL (0-1.0); Monocytes % (A) 4 %; Neutrophils # (A) 4.8 k/uL (1.3-7.7); Neutrophils % (A) 58 %; Platelet Count 194 k/uL (150-450); RBC 4.77 m/uL (3.80-5.40); RDW 12.4 % (11.5-15.5); WBC 8.3 k/uL (3.8-10.6)
[2022-05-31 06:42] LABS: ALT 33 U/L (4-34); AST 25 U/L (14-36); African American GFR (CKD) >90 (>60 ml/min/1.73 sqM); Albumin 4.4 g/dL (3.5-5.0); Alkaline Phosphatase 67 U/L (38-126); Anion Gap 10 mmol/L; Blood Urea Nitrogen 9 mg/dL (7-17); Calcium 9.2 mg/dL (8.4-10.2); Carbon Dioxide 22 mmol/L (22-30); Chloride 106 mmol/L (98-107); Glucose 99 mg/dL (74-99); Non-African American GFR(CKD) >90 (>60 ml/min/1.73 sqM); Sodium 138 mmol/L (137-145); Total Bilirubin 0.9 mg/dL (0.2-1.3)
--- NOTE | 2022-05-31 07:04 | ED ---
Headache HPI - General Chief Complaint: Headache Stated Complaint: headache Time Seen by Provider: 05/31/22 05:57 Source: patient, RN notes reviewed Mode of arrival: ambulatory - History of Present Illness Initial Comments: This is a 42-year-old female who presents to the emergency department for a headache. States that this has been present for approximately one week. She does have a history of migraines and states that she usually gets them about once a month. These often resolve on their own with ibuprofen, however she states that this was not the case this time. Would not describe this as being the worst headache of her life. Denies any fevers, chills, sore throat, cough, dyspnea, chest pain, palpitations, abdominal pain, nausea, vomiting, diarrhea, or back pain. MD Complaint: headache, "migraine" Onset/Timin -: week(s) Location: frontal - Related Data Home Medications Medication Instructions Recorded Confirmed Lopinavir/Ritonavir [Kaletra 2 tab PO BID 07/30/15 12/08/18 200-50 mg Tablet] lamiVUDine/ZIDOVUDINE [Combivir 1 tab PO BID 07/30/15 12/08/18 150Mg/300Mg] Guaifenesin/Pseudoephedrne HCl 1 tab PO Q12H 09/25/18 12/08/18 [Mucinex D ER Tablet] Ibuprofen 800 mg PO TID PRN 12/08/18 12/08/18 Previous Rx's Medication Instructions Recorded Albuterol Sulfate [Proair Hfa] 1 - 2 puff INHALATION Q6HR PRN #1 12/08/18 inhaler Ipratropium-Albuterol Nebulize 3 ml INHALATION Q4H PRN #30 neb 12/08/18 [Duoneb 0.5 mg-3 mg/3 ml Soln] Promethazine 6.25MG/5Ml [Phenergan 6.25 mg PO Q6H #100 ml 12/08/18 Syrup] predniSONE 50 mg PO DAILY #5 tablet 12/08/18 Allergies Allergy/AdvReac Type Severity Reaction Status Date / Time No Known Allergies Allergy Verified 05/31/22 00:15 Review of Systems ROS Statement: Those systems with pertinent positive or pertinent negative responses have been documented in the HPI. ROS Other: All systems not noted in ROS Statement are negative. Past Medical History Additional Past Medical History / Comment(s): HIV History of Any Multi-Drug Resistant Organisms: None Reported Past Surgical History: Section Past Psychological History: No Psychological Hx Reported Past Alcohol Use History: None Reported Past Drug Use History: None Reported General Exam General appearance: alert, in distress Head exam: Present: atraumatic, normocephalic, normal inspection Eye exam: Present: normal appearance, PERRL, EOMI. Absent: scleral icterus, conjunctival injection, periorbital swelling Respiratory exam: Present: normal lung sounds bilaterally. Absent: respiratory distress, wheezes, rales, rhonchi, stridor Cardiovascular Exam: Present: regular rate, normal rhythm, normal heart sounds. Absent: systolic murmur, diastolic murmur, rubs, gallop, clicks Neurological exam: Present: alert, oriented X3, CN II-XII intact Psychiatric exam: Present: normal affect, normal mood Skin exam: Present: warm, dry, intact, normal color. Absent: rash Course Vital Signs 05/31/22 00:10 Temperature 98.5 F Pulse Rate 102 H Respiratory 15 Rate Blood Pressure 133/74 O2 Sat by Pulse 98 Oximetry Medical Decision Making - Medical Decision Making This is a 42-year-old female who presents to the emergency department for a headache. Patient was given a migraine cocktail consisting of Benadryl, Toradol, methylprednisolone, and Compazine. Given that the headache has been lasting longer than usual, baseline lab work was obtained. This revealed no actionable findings. Patient noted resolution of her headache following the migraine cocktail. Patient requests discharge home. Advised ibuprofen and Tylenol as needed for any additional pain relief. Return precautions reviewed in depth, the patient is instructed to return to the emergency department with any new, worsening, or concerning symptoms. Patient verbalized understanding. This case was discussed in detail with the attending ED physician. Presentation, findings, and treatment plan discussed in detail as well. - Lab Data Result diagrams: 05/31/22 06:20 05/31/22 06:20 Lab Results 05/31/22 05/31/22 Range/Units 06:20 06:20 WBC 8.3 (3.8-10.6) k/uL RBC 4.77 (3.80-5.40) m/uL Hgb 15.2 (11.4-16.0) gm/dL Hct 44.4 (34.0-46.0) % MCV 93.2 (80.0-100.0) fL MCH 31.9 (25.0-35.0) pg MCHC 34.2 (31.0-37.0) g/dL RDW 12.4 (11.5-15.5) % Plt Count 194 (150-450) k/uL MPV 9.2 Neutrophils % 58 % Lymphocytes % 35 % Monocytes % 4 % Eosinophils % 2 % Basophils % 0 % Neutrophils # 4.8 (1.3-7.7) k/uL Lymphocytes # 2.9 (1.0-4.8) k/uL Monocytes # 0.3 (0-1.0) k/uL Eosinophils # 0.2 (0-0.7) k/uL Basophils # 0.0 (0-0.2) k/uL Sodium 138 (137-145) mmol/L Potassium 4.0 (3.5-5.1) mmol/L Chloride 106 (98-107) mmol/L Carbon Dioxide 22 (22-30) mmol/L Anion Gap 10 mmol/L BUN 9 (7-17) mg/dL Creatinine 0.75 (0.52-1.04) mg/dL Est GFR (CKD-EPI)AfAm >90 (>60 ml/min/1.73 sqM) Est GFR (CKD-EPI)NonAf >90 (>60 ml/min/1.73 sqM) Glucose 99 (74-99) mg/dL Calcium 9.2 (8.4-10.2) mg/dL Total Bilirubin 0.9 (0.2-1.3) mg/dL AST 25 (14-36) U/L ALT 33 (4-34) U/L Alkaline Phosphatase 67 (38-126) U/L Total Protein 7.0 (6.3-8.2) g/dL Albumin 4.4 (3.5-5.0) g/dL Disposition Clinical Impression: Migraine Disposition: HOME SELF-CARE Instructions (If sedation given, give patient instructions): Migraine Headache (ED) Additional Instructions: Return to the emergency department with any new, worsening, or concerning symptoms. Alternate with ibuprofen and Tylenol as needed for any additional pain relief. Is patient prescribed a controlled substance at d/c from ED?: No Referrals: Carmen Alicea MD [Primary Care Provider] - 1-2 days
[2022-05-31 07:57] VITALS: BP 105/54; PULSE 57
== END 2022-05-31 07:57 | disposition home or self-care (01) ==
LOC: EC 23:53
DX: G43.909 Migraine, unspecified, not intractable, without status migrainosus (principal); B20 Human immunodeficiency virus [HIV] disease
CPT/HCPCS: 99284 ×2; 96374 ×2; 96375 ×4; 96361 ×2; 36415; 80053; 85025; J1200; J0780; J2930; J1885; 96365; 99283

== ENCOUNTER → 2023-07-17 | Outpatient (CLI) | payer OTHER ==
[2023-07-17 15:59] LABS: ALT 20 U/L (8-44); AST 13 U/L (13-35); Albumin 4.5 d/dL (3.8-4.9); Albumin/Globulin Ratio 1.96 Ratio (1.60-3.17); Alkaline Phosphatase 74 U/L (41-126); BUN/Creat Ratio 13.29 Ratio (12.00-20.00); Blood Urea Nitrogen 9.3 mg/dL (9.0-27.0); Calcium 9.5 mg/dL (8.7-10.3); Carbon Dioxide 23.6 mmol/L (21.6-31.8); Chloride 106 mmol/L (96-109); Globulin 2.3 d/dL (1.6-3.3); Glucose 87 mg/dL (70-110); Potassium 4.5 mmol/L (3.5-5.5); Sodium 139 mmol/L (135-145); Total Bilirubin 0.5 mg/dL (0.3-1.2); Total Protein 6.8 d/dL (6.2-8.2)
[2023-07-17 16:15] LABS: Basophils # (A) 0.04 X 10*3/uL (0.00-0.10); Basophils % (A) 0.6 %; Eosinophils # (A) 0.13 X 10*3/uL (0.04-0.35); Eosinophils % (A) 1.8 %; HCT 44.5 % (37.2-46.3); HGB 14.9 d/dL (12.0-15.0); Lymphocytes # (A) 2.32 X 10*3/uL (0.90-5.00); Lymphocytes % (A) 32.4 %; MCH 30.5 pg (27.0-32.0); MCHC 33.5 d/dL (32.0-37.0); Mean Platelet Volume 12.4 FL (9.5-12.2); Monocytes # (A) 0.41 X 10*3/uL (0.20-1.00); Monocytes % (A) 5.7 %; NRBC Per 100 WBC 0 X 10*3/uL (0.00-0.01); Neutrophils # (A) 4.24 X 10*3/uL (1.80-7.70); Neutrophils % (A) 59.2 %; Platelet Count 203 X 10*3/uL (140-440); RBC 4.89 X 10*6/uL (4.10-5.20); RDW 12.2 % (11.5-14.5); WBC 7.16 X 10*3/uL (4.50-10.00)
[2023-07-18 12:36] LABS: T4/T8 Ratio (CD4:CD8) 1.7 (1.0-3.7)
== END | disposition home or self-care (01) ==
LOC: LABWHC1 10:24
PROVIDERS: ATTEND Internal Medicine Infectious Disease
DX: B20 Human immunodeficiency virus [HIV] disease (principal)
CPT/HCPCS: 36415; 80053; 85025; 86360; 87536